=== PATIENT | female | born 2000 | race Caucasian/White ===

== ENCOUNTER 2025-05-11 11:03 | Inpatient (IN) | payer OTHER, MEDICAID ==
[2025-05-12] MEDS ORDERED: Lidocaine 1% (PF) 30 ML VIAL SC PRN (05:36)
[2025-05-12] MEDS ORDERED: Ondansetron PF 4 MG/2 ML Vial IVP PRN ×3 (05:36→15:44)
[2025-05-12] MEDS ORDERED: Carboprost 250 MCG/ML AMP IM PRN (05:36)
[2025-05-12] MEDS ORDERED: hydrALAZINE 20 MG/ML VIAL SLOW IVP PRN ×2 (05:36→15:44)
[2025-05-12] MEDS ORDERED: Diphenoxylate HCl/Atropine Tablet PO PRN ×2 (05:36)
[2025-05-12] MEDS ORDERED: Methylergonovine 0.2 MG/ML VIAL IM PRN ×2 (05:36→15:44)
[2025-05-12] MEDS ORDERED: Oxytocin 30 units/NS 500 ML 500 ML IV SCH ×3 (05:36→15:45)
[2025-05-12] MEDS ORDERED: HYDROcodone/Acetaminophen 5/325 mg Tablet PO PRN ×2 (05:36)
[2025-05-12] MEDS: Penicillin G Potassium 5 MILL.UNITS in Sodium Chloride 0.9% 100 ML IVPB SCH (06:10)
[2025-05-12] MEDS: Penicillin G Potassium 5 MILL.UNITS VIAL ONE (06:10)
[2025-05-12 06:24] LABS: Hematocrit 36.2 % (34.9-44.5); Hemoglobin 12.4 g/dL (12.0-15.5); Mean Corpuscular Hemoglobin 31.0 pg (27.0-33.0); Mean Corpuscular Volume 90.5 fL (81.6-98.3); Platelet Count 184 10x3/uL (150-450); Red Blood Cell (RBC) Count 4.00 10x6/uL (3.90-5.03); White Blood Cell (WBC) Count 9.84 10x3/uL (3.5-10.5)
[2025-05-12] MEDS: Oxytocin 30 units/NS 500 ML 500 ML IV SCH (06:34)
[2025-05-12 06:59] LABS: HIV (1/2) Antibody/Antigen Non-Reactive (NonReactive); HIV 1/2 INDEX 0.11 S/CO (<1.00); Hep B Surf Ag - L&D Non-Reactive S/CO (NonReactive)
[2025-05-12 07:00] LABS: Syphilis Antibody Index 0.06 S/CO (<1.00 Non-Reactive)
[2025-05-12] MEDS: fentaNYL/Ropivacaine Epidural 100 ML ONE (08:17)
[2025-05-12] MEDS ORDERED: Acetaminophen 325 MG TAB PO PRN (08:28)
[2025-05-12] MEDS ORDERED: diphenhydrAMINE 50 MG/ML VIAL IVP PRN (08:28)
[2025-05-12] MEDS ORDERED: Communication Order-Pharmacy FS SCH (08:30)
[2025-05-12] MEDS ORDERED: fentaNYL 2 mcg/Ropivacaine 0.2% Epidural 100 ML CADD EPIDURAL SCH (08:30)
[2025-05-12] MEDS: Penicillin G 2.5 MILL.units 2.5 MILL.UNITS in Premix 1 BAG IVPB SCH (10:36)
[2025-05-12] MEDS ORDERED: Lanolin Ointment 7 GM TUBE TOP PRN (15:44)
[2025-05-12] MEDS ORDERED: Milk Of Magnesia 30 ML UDCUP PO PRN (15:44)
[2025-05-12] MEDS ORDERED: Bisacodyl 10 MG SUPP PR PRN (15:44)
[2025-05-12] MEDS ORDERED: Preparation H Ointment 28 GM TUBE PR PRN (15:44)
[2025-05-12] MEDS ORDERED: Methylergonovine 0.2 MG TAB PO PRN (15:44)
[2025-05-12] MEDS ORDERED: diphenhydrAMINE 25 MG CAP PO PRN (15:44)
[2025-05-12] MEDS ORDERED: Benzocaine-Menthol 82.5 ML CAN TOP PRN (15:44)
[2025-05-12] MEDS: Ibuprofen 800 MG TAB PO PRN (16:16)
[2025-05-12] MEDS: Boostrix 0.5 ML (Tdap) VIAL (>/=7 yrs of age) IM ONE (18:08)
[2025-05-12] MEDS: Ferrous Sulfate 325 MG TAB PO SCH (18:09)
[2025-05-13] MEDS: HYDROcodone/Acetaminophen 5/325 mg Tablet PO PRN (03:57)
[2025-05-13 04:07] LABS: Hematocrit 31.0 % (34.9-44.5); Hemoglobin 10.4 g/dL (12.0-15.5); Mean Corpuscular Hemoglobin 30.8 pg (27.0-33.0); Mean Corpuscular Volume 91.7 fL (81.6-98.3); Platelet Count 176 10x3/uL (150-450); Red Blood Cell (RBC) Count 3.38 10x6/uL (3.90-5.03); White Blood Cell (WBC) Count 14.04 10x3/uL (3.5-10.5)
[2025-05-13] MEDS: Ibuprofen 800 MG TAB PO SCH (09:00)
[2025-05-14 08:15] VITALS: BP 117/76; TEMP 97.8
== END 2025-05-14 12:50 | disposition home or self-care (01) | DRG 807 ==
LOC: CSHLD 05-12 05:28 → CSHPP 05-12 18:24
PROVIDERS: ADMIT Obstetrics & Gynecology; ATTEND Obstetrics & Gynecology
DX: O99.824 Streptococcus B carrier state complicating childbirth (principal); Z37.0 Single live birth; O48.0 Post-term pregnancy; O70.1 Second degree perineal laceration during delivery; Z3A.40 40 weeks gestation of pregnancy
CPT/HCPCS: 36415; 51702; 85027; 86780; 86850; 86900; 86901; 87340; 87389; J2540; J2590; J7120